=== PATIENT | female | born 1970 | race Native Hawaiian/Other Pacific Islander ===

== ENCOUNTER 2022-01-26 22:52 | Emergency (ER) | payer SELFPAY ==
[2022-01-26 23:18] VITALS: BP 124/80; PULSE 102; RESP 20; TEMP 98.2; BMI 21.1
== END 2022-01-27 04:15 | disposition left against medical advice (07) ==
LOC: JER 22:52
DX: I10 Essential (primary) hypertension (principal); R94.31 Abnormal electrocardiogram [ECG] [EKG]
CPT/HCPCS: 93005; 93010; 99285-25